=== PATIENT | male | born 1960 | race Caucasian/White ===

== ENCOUNTER 2017-02-17 20:55 | Emergency (ER) | payer SELFPAY ==
[~2017-02-17] VITALS: Ht 182.9 cm; Wt 99.8 kg
[2017-02-17 20:57] VITALS: BP 136/100
--- NOTE | 2017-02-17 21:38 | NUR ---
Pt w/c assisted to bed 6.
--- NOTE | 2017-02-17 21:41 | NUR ---
Dr. Yo evaluating patient at bedside.
--- NOTE | 2017-02-17 21:42 | NUR ---
56/M c/o left lower abdominal pain, c/o "hernia pain" x6 days. Pt describes pain radiating to left groin, sharp, severe, 10/10. Pt is moaning, thrashing in bed, restless, rubbing left groin area. AOX4, denies any provocation. Denies N/V/D. Denies s/s of UTI. VSS. Pt w/c assisted to the bed. Placed in gown, placed on gambling monitor, pulse oximetry, blood pressure monitoring.
[2017-02-17 22:05] LABS: HEMATOCRIT 37.1 % (36-52); HEMOGLOBIN 12.5 g/dL (12.0-18.0); MEAN CORPUSCULAR HEMOGLOBIN 29 pg (27-31); MEAN CORPUSCULAR HGB CONC 34 g/dL (33-37); MEAN CORPUSCULAR VOLUME 87 fL (80-94); PLATELET COUNT (AUTO) 358 K/uL (140-450); RED BLOOD CELL COUNT(AUTO) 4.27 MIL/uL (4.20-6.10); RED CELL DISTRIBUTION WIDTH 12.5 % (11.6-13.7)
[2017-02-17] MEDS: NACL 0.9% 1,000 ML IV ONE (22:05)
[2017-02-17] MEDS: MORPHINE SULFATE 4 MG/ML SYR IVP ONE (22:06)
[2017-02-17] MEDS: ONDANSETRON 4 MG/2 ML VIAL IVP ONE (22:06)
[2017-02-17] MEDS: KETOROLAC 30 MG/ML VIAL IVP ONE (22:06)
--- NOTE | 2017-02-17 22:16 | NUR ---
PT TAKEN TO CT
[2017-02-17 22:18] LABS: BAND % (MANUAL) 7 % (0-8); LYMPHOCYTES % (MANUAL) 11 % (20-46); MONOCYTES % (MANUAL) 2 % (5-12); NEUTROPHILS % (MANUAL) 80 (43-65); WHITE BLOOD COUNT (AUTO) 20.9 K/uL (4.8-10.8)
[2017-02-17 22:22] LABS: ALBUMIN 2.7 g/dL (3.4-5.0); ANION GAP 11.5 (8-16); CARBON DIOXIDE 28.4 mmol/L (21-32); CREATININE 1.1 mg/dL (0.7-1.3); TOTAL BILIRUBIN 0.5 mg/dL (0.0-1.0); TOTAL PROTEIN, SERUM 8.1 g/dL (6.4-8.2)
[2017-02-17 22:23] LABS: POTASSIUM 2.9 mmol/L (3.5-5.1)
--- NOTE | 2017-02-17 22:27 | NUR ---
Pt returned from CT scan.
[2017-02-17] MEDS: HYDROmorphone 1 MG/ML AMP IVP ONE (23:11)
--- NOTE | 2017-02-17 23:39 | NUR ---
Patient appears to be resting comfortably in bed. VSS. Water provided. No distress noted.
[2017-02-18 00:07] LABS: AMPHETAMINE, URINE POS. ng/ml (NEG <=1000); BARBITURATE, URINE NEG. ng/ml (NEG <=200); BENZODIAZEPINE, URINE NEG. ng/mL (NEG <=200); CANNABINOID, URINE NEG. ng/mL (NEG <=50); COCAINE, URINE NEG. ng/mL (NEG <=300); OPIATE, URINE POS. ng/mL (NEG <=2000); PHENCYCLIDINE SCREEN,URINE NEG. ng/mL (NEG <=25)
[2017-02-18 00:09] LABS: APPEARANCE,URINE SLIGHTLY CLOUDY (CLEAR); BLOOD, URINE NEGATIVE (NEGATIVE); COLOR,URINE YELLOW (YELLOW); PROTEIN,URINE TRACE (NEGATIVE); UGLUCOSE NEGATIVE (NEGATIVE)
[2017-02-18 00:10] LABS: BILIRUBIN,URINE NEGATIVE (NEGATIVE); LEUKOCYTE ESTERASE ,URINE NEGATIVE (NEGATIVE); NITRITE, URINE NEGATIVE (NEGATIVE)
[2017-02-18 00:11] LABS: BACTERIA,URINE FEW /HPF (None Seen); MUCUS,URINE 2+ /LPF (None Seen); RBC,URINE 0-5 (RARE) /HPF (0-5); SQUAMOUS EPITHELIAL CELL,UR 0-3 (FEW) /LPF (0-3 (FEW)); WBC,URINE 0-5 (RARE) /HPF (0-5)
--- NOTE | 2017-02-18 00:17 | NUR ---
Patient appears to be resting comfortably in bed. VSS.
[2017-02-18 00:47] VITALS: BP 133/67
--- NOTE | 2017-02-18 00:48 | NUR ---
Patient discharged with v/s stable. Written and verbal after care instructions given and explained. Patient alert, oriented and verbalized understanding of instructions. Ambulatory with steady gait. All questions addressed prior to discharge. ID band removed. Patient advised to follow up with PMD. Rx of NAPROSYN 500MG BID/PRN, NORCO 5MG-325MG Q4HRS/PRN given. Patient educated on indication of medication including possible reaction and side effects. Opportunity to ask questions provided and answered.
== END 2017-02-18 00:48 | disposition home or self-care (01) ==
LOC: MED 20:55
DX: R10.9 Unspecified abdominal pain (principal)
CPT/HCPCS: 36415; 74176; 80053; 80305; 81001; 83690; 85025; 96361; 96374; 96375; 99285; J1170; J1885; J2270; J2405; J7030